=== PATIENT | female | born 1940 | race Caucasian/White ===

== ENCOUNTER 2017-09-06 07:58 | Outpatient (CLI) | payer OTHER ==
[~2017-09-06 07:58] MED LIST: CITRACAL + D CA1 TAB PO; CRESTOR5 MG PO; DEMEROL50 MG
== END 2017-09-06 17:40 | disposition home or self-care (01) ==
LOC: NUCLEAR 07:58
DX: R55 Syncope and collapse (principal); I10 Essential (primary) hypertension

== ENCOUNTER 2017-09-10 12:44 | Outpatient (CLI) | payer OTHER | END 2017-09-10 13:00 | disposition home or self-care (01) | LOC: NUCLEAR 12:44 | DX: R55 Syncope and collapse (principal) ==

== ENCOUNTER 2019-01-22 08:16 | Outpatient (CLI) | payer OTHER | END 2019-01-22 08:24 | disposition home or self-care (01) | LOC: RAD 08:16 | DX: R10.84 Generalized abdominal pain (principal) ==

== ENCOUNTER 2021-08-02 07:32 | Outpatient (CLI) | payer OTHER ==
[~2021-08-02 07:32] MED LIST changes: +TIZANIDINE HCL4 MG PO; +TRIAMCINOL40 MG/1 M4 IM
== END 2021-08-02 07:50 | disposition home or self-care (01) ==
LOC: TOM 07:32
PROVIDERS: ATTEND Internal Medicine Gastroenterology
DX: R10.30 Lower abdominal pain, unspecified (principal); R10.10 Upper abdominal pain, unspecified; K57.30 Diverticulosis of large intestine without perforation or abscess without bleeding
CPT/HCPCS: 74177; Q9965

== ENCOUNTER 2022-09-20 09:39 | Emergency (ER) | payer OTHER ==
[~2022-09-20] VITALS: Ht 167.6 cm; Wt 78.5 kg
[2022-09-20] MEDS ORDERED: LEVOTHYROXINE50 MCG PO (10:43)
[2022-09-20] MEDS ORDERED: ROSUVASTATIN CA20 MG PO (10:43)
[2022-09-20] MEDS ORDERED: PANTOPRAZOLE SO40 MG PO (10:44)
[2022-09-20] MEDS ORDERED: SULINDAC200 MG PO (10:44)
[2022-09-20] MEDS ORDERED: NITROGLYCERIN0.4 MG SL (10:44)
[2022-09-20] MEDS ORDERED: ZOLPIDEM TARTRA10 MG PO (10:44)
[2022-09-20] MEDS ORDERED: GABAPENTIN100 M2 PO (10:44)
[2022-09-20] MEDS ORDERED: LOSARTAN POTASS25 MG PO (10:44)
== END 2022-09-20 14:15 | disposition home or self-care (01) ==
LOC: ER 09:39
DX: U07.1 COVID-19 (principal); R55 Syncope and collapse; S01.02XA Laceration with foreign body of scalp, initial encounter; W18.39XA Other fall on same level, initial encounter; Y93.89 Activity, other specified; Y92.89 Other specified places as the place of occurrence of the external cause

== ENCOUNTER 2022-09-27 09:12 | Outpatient (CLI) | payer OTHER ==
[~2022-09-27 09:12] MED LIST changes: +GABAPENTIN100 M2 PO; +LEVOTHYROXINE50 MCG PO; +LOSARTAN POTASS25 MG PO; +NITROGLYCERIN0.4 MG SL; +PANTOPRAZOLE SO40 MG PO; +ROSUVASTATIN CA20 MG PO; +SULINDAC200 MG PO; +ZOLPIDEM TARTRA10 MG PO
== END 2022-09-27 09:21 | disposition home or self-care (01) ==
LOC: TOM 09:12
PROVIDERS: ATTEND Internal Medicine Cardiovascular Disease
DX: R51.9 Headache, unspecified (principal)

== ENCOUNTER 2025-03-04 10:37 | Outpatient (CLI) | payer OTHER | END 2025-03-04 10:39 | disposition home or self-care (01) | LOC: SONOGRAMA 10:37 | PROVIDERS: ATTEND Internal Medicine Cardiovascular Disease | DX: R10.9 Unspecified abdominal pain (principal); R31.9 Hematuria, unspecified ==

== ENCOUNTER 2025-03-18 08:43 | Outpatient (CLI) | payer OTHER | END 2025-03-18 09:00 | disposition home or self-care (01) | LOC: TOM 08:43 | PROVIDERS: ATTEND Internal Medicine Gastroenterology | DX: R10.30 Lower abdominal pain, unspecified (principal); K57.30 Diverticulosis of large intestine without perforation or abscess without bleeding ==